=== PATIENT | male | born 1975 | race Caucasian/White ===

== ENCOUNTER 2022-06-02 13:29 | Emergency (ER) | payer OTHER, SELFPAY ==
--- NOTE | ~2022-06-02 | XR_ITS ---
XR knee LT min 4V DATE: 06/02/2022 14:07 INDICATION: Injury last evening. Knee pain. TECHNIQUE: 4 views including crosstable lateral COMPARISON: None FINDINGS: No fracture or dislocation or joint effusion. No periosteal reaction or bone destruction. J oint spaces are well preserved. No radiopaque intra-articular loose body or chondrocalcinosis. IMPRESSION: Negative Reviewed, dictated and finalized at location [facility]. 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
[2022-06-02 13:36] VITALS: BP 152/102; PULSE 68; RESP 18; TEMP 36.9; O2SAT 100
--- NOTE | 2022-06-02 13:37 | ED.LOWEXIN ---
HPI - Extremity Injury (Lower) General Chief Complaint: Extremity Injury, Lower <Carin Ross APRN - Last Filed: 06/02/22 13:56> Stated Complaint: Left Knee Pain <Carin Ross APRN - Last Filed: 06/02/22 13:56> Time Seen by Provider: 06/02/22 13:39 <Carin Ross APRN - Last Filed: 06/02/22 13:56> Source: patient, RN notes reviewed and old records reviewed <Carin Ross APRN - Last Filed: 06/02/22 13:56> Mode of arrival: ambulatory <Carin Ross APRN - Last Filed: 06/02/22 13:56> Limitations: no limitations <Carin Ross APRN - Last Filed: 06/02/22 13:56> History of Present Illness HPI Narrative: 46-year-old male presents to the [facility] with left lateral knee pain since yesterday. 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 Has been icing it, elevating it as well as taken ibuprofen. Currently has a knee brace in place. Has full range of motion. No swelling noted. No bruising noted. Tenderness to the lateral aspect, insert of IT band area <Carin Ross APRN - Last Filed: 06/02/22 13:56> Onset (ago): day(s) (1) <Carin Ross APRN - Last Filed: 06/02/22 13:56> Related Data Allergies/Adverse Reactions: Allergies Allergy/AdvReac Type Severity Reaction Status Date / Time No Known Allergies Allergy Mild Verified 06/02/22 13:36 <Carin Ross APRN - Last Filed: 06/02/22 13:56> Review of Systems Review of Systems: All systems reviewed & are unremarkable except as noted in HPI and below <Carin Ross APRN - Last Filed: 06/02/22 13:56> Constitutional: Constitutional: Reports no additional constitutional complaints <Carin Ross APRN - Last Filed: 06/02/22 13:56> Eyes: Eyes: Reports no additional eye complaints <Carin A. Vandana, [employer] - Last Filed: 06/02/22 13:56> ENT: Reports system reviewed and no additional complaints, except as documented <Carin A. Vandana, [employer] - Last Filed: 06/02/22 13:56> Cardiovascular: Cardiovascular: Reports no additional cardiovascular complaints, Denies chest pain and Denies dyspnea <Carin A. Vandana, [employer] - Last Filed: 06/02/22 13:56> Respiratory: Respiratory: Reports no additional respiratory complaints, Denies chest congestion, Denies cough and Denies dyspnea <Carin A. Vandana, [employer] - Last Filed: 06/02/22 13:56> Gastrointestinal: Gastrointestinal: Reports no additional gastrointestinal complaints, Denies abdominal pain, Denies nausea and Denies vomiting <Carin A. Vandana, [employer] - Last Filed: 06/02/22 13:56> Musculoskeletal: Musculoskeletal: Reports as per HPI, Reports arthralgias (left lateral) and Denies joint swelling <Carin A. Vandana, [employer] - Last Filed: 06/02/22 13:56> Integumentary/Breasts: Skin/Breast: Reports system reviewed and no additional complaints, except as docu <Carin A. Vandana, [employer] - Last Filed: 06/02/22 13:56> Neurologic: Reports system reviewed and no additional complaints, except as documented <Carin A. Vandana, [employer] - Last Filed: 06/02/22 13:56> Psychiatric: Psychiatric: Reports no additional psychiatric complaints <Carin A. Vandana, [employer] - Last Filed: 06/02/22 13:56> Allergic/Immunologic: Allergic/Immunologic: Reports no additional allergic/immunologic complaints <Carin A. 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
--- NOTE | 2022-06-02 13:46 | PC.NURSE ---
Pt transferred to [facility] facility for xay d/t unavailability here today. Rn to RN report given by Natasha Ross
== END 2022-06-02 14:34 | disposition home or self-care (01) ==
PROVIDERS: Emergency Provider Nurse Practitioner Family; PCP Internal Medicine
DX: S83.422A Sprain of lateral collateral ligament of left knee, initial encounter (principal); X50.9XXA Other and unspecified overexertion or strenuous movements or postures, initial encounter; Y99.0 Civilian activity done for income or pay
CPT/HCPCS: 73564; 99213; G0463

== ENCOUNTER 2022-06-08 07:24 | Outpatient (CLI) | payer OTHER, SELFPAY ==
--- NOTE | ~2022-06-08 | MR_ITS ---
MRI of the left knee Clinical history: Pain Technique: Coronal proton density and proton density-weighted images, sagittal proton-density and T2 fat-sat images, and axial proton-density fat-saturated images were acquired. Findings: There is a probable complete tear of the proximal ACL at its origin at the intercondylar no tch. Posterior cruciate ligament is intact. Medial collateral ligament and the lateral collateral lig ament complex are intact. Popliteus tendon is intact. Medial and lateral menisci are intact, without evidence of tear. Articular cartilage in the medial and lateral compartments is well preserved. There is focal moderate chondral malacia central aspect of the femoral trochlea with focal subchondral reactive marrow edema . Patellar articular cartilage is intact. There is a focal bone contusion at the posterolateral tibia l plateau. Extensor mechanism is intact. Small joint effusion present with minimal Nicole's cyst. Impression: Probable complete tear of the proximal ACL, as noted above. Focal bone contusion at the posterolateral tibial plateau. 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 Small joint effusion with minimal Nicole's cyst. Reviewed, dictated and finalized at [facility]. ER INSPECTOR Impression: Probable complete tear of the proximal ACL, as noted above. Focal bone contusion at the posterolateral tibial plateau. 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 Small joint effusion with minimal Nicole's cyst.
== END 2022-06-08 07:25 | disposition home or self-care (01) ==
LOC: ANHIMG 07:30
PROVIDERS: PCP Internal Medicine; Visit Provider Orthopaedic Surgery
DX: S83.512A Sprain of anterior cruciate ligament of left knee, initial encounter (principal); X58.XXXA Exposure to other specified factors, initial encounter; M25.462 Effusion, left knee
CPT/HCPCS: 73721

== ENCOUNTER 2022-06-25 01:05 | Day surgery (SDC) | payer OTHER, SELFPAY ==
--- NOTE | 2022-06-15 11:41 | PC.NURSE ---
Report to the Outpatient Waiting Room, entrance under the green pavilion located off [facility], at time _0900 on date __06/25/22 . Planned Procedure Time: __1100 . Time changes happen often and if your time is changed the preop area will call you the afternoon before. - You and your visitor will be asked to self-screen and do not enter if you have any COVID symptoms. - Only one visitor is requested with a max of two and NO children visitors are allowed at this time. - The patient visitor may be requested to leave or wait in car when not with patient due to distancing restrictions. - A mask is optional within the hospital at this time. Patients may have clear liquids (water, carbonated beverages, clear teas, apple juice) until 3 hours prior to surgery with a maximum of 20 ounces. - No food from midnight until time of surgery - Infants may have breast milk until 4 hours before surgery, formula 6 hours prior to surgery. - Children will be allowed to drink immediately following surgery. If applicable, please bring a bottle or sippy cup to assist with drinking. Juice, water, soda, and popsicles are readily available. For infants on formula, please bring formula the day of surgery. Pacifiers are allowed. Take the following medications with a SIP of water the morning of surgery: NONE DO NOT STOP ANY OF YOUR OTHER PRESCRIPTION MEDICATIONS PRIOR TO SURGERY ?EXCEPT THE FOLLOWING Medications to discontinue per physician __NAPROXEN 7 DAYS PRE OP .LAST DOSE 06/17/22 VITAMIN D 3 DAYS PRE OP LAST DOSE 06/21/22 MAY TAKE TYLENOL IF NEEDED FOR PAIN Please no make-up, nail citizen of [place], hairspray, perfume, deodorant, or body powder the day of surgery. No jewelry (including any body piercings) or valuables the day of surgery, leave them at home. Please take a shower or bath the night before, or the morning of, surgery with an antibacterial soap. Wear comfortable, loose fitting clothing. Children are encouraged to wear pajamas. - Jewelry must be removed prior to entering the operating room. Rings and piercings that are not removed may be cut off. - The hospital will not accept responsibility for valuables. - Please leave all valuables, including medications, at home the day of surgery. If you are going home after surgery, a licensed [employer] flatbed driver must drive you home. - NO public transportation without another adult if you receive anesthesia. - We recommend that an adult stay with you for 24 hours following discharge. - We also recommend that you do not drive, make important decision, drink alcoholic beverages, or take any drugs that were not prescribed by your health care provider for at least 24 hours after your discharge time. Follow any additional instructions given to you from your surgeon. If you or anyone in your household have experienced Covid symptoms in the past week, please notify your surgeon or the nurse liaison at the phone number below for possible testing. Telephone instructions given to ___PATIENT and asked if any additional questions and then verbalized understanding. Patient advised to call surgeon office or pre surgery nurse liaison [phone] if any additional questions.
[2022-06-15 11:48] VITALS: BMI 31.6
[2022-06-25] VITALS (8 sets, daily range): BP systolic 136–159; BP diastolic 82–99; PULSE 71–97; RESP 12–16; TEMP 36.5–37.2; O2SAT 93–99
[2022-06-25] MEDS: ACETAMINOPHEN 500 MG TABLET 1000 MG PO (09:27)
[2022-06-25] MEDS: LACTATED RINGERS 1,000 ML 30 ML IV CONT ×2 (09:47→14:18)
[2022-06-25] MEDS: KETOROLAC 15 MG/ML VIAL (*BKC) IV PUSH (09:48)
--- NOTE | 2022-06-25 09:51 | SUR.PREOP ---
pt demonstrated use of crutches. ordered crutches and sized for pt,crutches given to .
--- NOTE | 2022-06-25 09:59 | WPDANESEPPF ---
Anes - Initial Pre Proc Eval Procedure: Operation Date: 06/25/22 11:00 Proposed Procedures p Arthroscopic Anterior Cruciate Ligament Reconstruction Left Knee with Allograft - Troy Day MD Date/Time: 06/25/22 09:59 Surgeon: Troy Day MD Pre Op Diagnosis: ACL tear left knee Patient Data Age: 46 Gender: M Height: 1.78 m Weight: 102.6 kg Last Vital Signs Temp 36.5 C 06/25/22 09:00 Pulse 89 06/25/22 09:00 Resp 16 06/25/22 09:00 BP 141/89 H 06/25/22 09:00 Pulse Ox 99 06/25/22 09:00 O2 Del Method Room Air 06/25/22 09:00 Allergies Allergy/AdvReac Type Severity Reaction Status Date / Time No Known Allergies Allergy Mild Verified 06/25/22 09:24 Home Medications Medication Instructions Recorded Confirmed Type naproxen 500 mg tablet 500 mg PO BID PRN pain 7 days #14 06/02/22 06/25/22 Rx tabs cholecalciferol (vitamin D3) 125 125 mcg PO DAILY 06/15/22 06/25/22 History mcg (5,000 unit) capsule omeprazole 20 mg capsule,delayed 20 mg PO DAILY 06/15/22 06/25/22 History release Patient hx anesthesia problems: none Family hx anesthesia problems: none Results Review: All pre-operative results and documents have been reviewed as part of the pre-operative evaluation. FOR[facility]LY [facility], [facility] Past Medical History Medical History Patient denies medical problems Surgical History Surgical History (Updated 06/25/22 @ 10:00 by Aníbal Chun MD) H/O elbow surgery History of nasal surgery Social History Social History Smoking status: Never smoker Alcohol intake: never Substance use: never Lack of Transportation: No Lack of Food: Never True Current Housing: I Have Housing Concerned About Future Housing: No Difficulty Paying Gas/Electric Bills: No Difficulty Paying for Meds: No Currently Unemployed: No Education: Master's Degree or Higher Difficulty w/ Childcare or Family Care: No Living arrangements: with family Occupation/Education: occupation 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 Informed Consent: The patient's anesthetic plan and its attendant risks and benefits were discussed with the patient/family/POA. Questions were solicited and answers provided to the satisfaction of the patient/family/POA.
--- NOTE | 2022-06-25 11:07 | WPDHPUPDATE1 ---
History and Physical Update Update Date/Time: 06/25/22 11:07 History and Physical has been reviewed, including an updated exam of the patient. There are NO changes in the patient's condition. Risks, benefits, and alternatives have been discussed and questions answered. Patient agrees to proceed with procedure.
[2022-06-25] MEDS: ceFAZolin 2 GM/D5W 50 ML 2 GM/50 ML BAG IVPB (11:30)
[2022-06-25] MEDS: BUPIVACAINE/EPINEPHRINE 0.5% 10 ML VIAL 30 ML INFILTRATE (12:28)
[2022-06-25] MEDS: ONDANSETRON INJ 4 MG/2 ML VIAL IV PUSH ×2 (14:36→15:00)
[2022-06-25] MEDS: SCOPOLAMINE 1.5 MG PATCH TRANSDERM (15:00)
[2022-06-25] MEDS: FAMOTIDINE 20 MG/2 ML VIAL IV PUSH (15:03)
--- NOTE | 2022-06-25 17:27 | W.PM.PROC2 ---
Procedure Note - Detailed Date of Procedure 06/25/22 Pre-op Diagnosis ACL tear left knee Post-op Diagnosis Other (1. Complete ACL tear, acute 2. Anterior horn medial meniscus tear ) Procedure Performed 1. Arthroscopic ACL reconstruction with bone-patellar tendon bone allograft 2. Medial meniscus repair Surgeon Troy Day MD Anesthesia General Findings Portion of the anterior horn of the meniscus was disrupted. It was a horizontal split to the anterior horn of the meniscus as well. The inferior portion appeared normal. The ACL was completely disrupted. The lateral compartment was normal. The patella showed minimal grade 1 chondromalacia on the trochlea. There was a grade 1/2 chondromalacia on the medial femur, potentially consistent with the meniscus damage which may have been chronic. Description of Procedure The patient was given preoperative antibiotics prior to going to the operating room. A general anesthetic was administered. Examination under anesthesia was performed. Positive Liana's confirmed as well as pivot shift. The leg was prepped and draped in the usual sterile fashion after placing the leg in the arthroscopic leg doll. The limb was exsanguinated and the tourniquet reinflated to 300 millimeters of mercury. Standard inferomedial, inferolateral and superior-medial arthroscopic portals were established. In flow was obtained with the saline pump. The residual ACL tissue was debrided with the arthroscopic shaver and the radioablation probe. Minimal notchplasty was performed as needed. The menisci were carefully inspected. There was a tear of the anterior horn of the medial meniscus which included the more superficial half of the meniscus. This may have been disrupted from intra meniscal tissue or been chronic. A mattress stitch was placed with the PDS as a suture shuttle and the Dony suture Passer used. This was exchanged for 1.7 mm FiberTape. The ACL graft was used at 30? to create a small tunnel with a wire placed at the proper attachment point for the meniscus. The soft tissue attachment was too medial and did not create the appropriate tension in the meniscus horn. However, the new pin site was optimal. The sutures were then shuttled through this hole out the anteromedial tibial cortex for later repair with the suture anchor. Attention was turned back to the ACL reconstruction. The allograft was fine tuned on the back table at this point. He the graft did not easily passed through the tendon and 0.5 mm tunnel and some shaping of the graft was required. Attention was then turned back to the knee. The drill guide was placed at the [place] ACL footprint on the femur. An anatomic location was chosen, and confirmation of safe placement with the over the top guide. The flexible guide wire was drilled out of the lateral thigh anterior to midline. The flexible reamer was used to drill the tunnel for the femoral graft. The posterior wall was 1 mm. A suture was placed through the pin and brought out through the thigh. The ACL guide was used at this time to drill a guide pin for the tibial tunnel. A separate small incision was utilized at the medial tibia. This was reamed with the strait reamer. The tibia guide was set at 60?. Typical anatomic landmarks were used for the tibial footprint. The lateral meniscus was utilized, and the location placed anatomically. The graft was then fed through the tibial tunnel into the femur. The graft was carefully positioned with the bone block anteriorly on the femur. A small notch was created to accept the screw. The nitinol wire was placed and the 7 x 20 millimeter interference screw was placed with excellent purchase. The graft was cycled. The tibia bone block was secured with the knee at 30? of flexion and slight posterior drawer was applied. The distal screw was placed similarly over the nitinol wire. An 8 x 25 millimeter titanium screw was used. Fixation was excellent. Care was take
== END 2022-06-25 16:12 | disposition home or self-care (01) ==
PROVIDERS: PCP Internal Medicine; Visit Provider Orthopaedic Surgery
PROC: (CPT 29888; principal; 2022-06-25 11:00)
DX: S83.512A Sprain of anterior cruciate ligament of left knee, initial encounter (principal); S83.242A Other tear of medial meniscus, current injury, left knee, initial encounter; X50.0XXA Overexertion from strenuous movement or load, initial encounter; Y93.75 Activity, martial arts
CPT/HCPCS: 29888; 29881; A9270; C1713; J0690; J1100; J1170; J1885; J2250; J2405; J2704; J2710; J3010; J7120; L1830